=== PATIENT | female | born 1940 | race Caucasian/White ===

== ENCOUNTER 2017-12-10 12:25 | Inpatient (IN) | payer MEDICAID, MEDICARE ==
[~2017-12-10] VITALS: Ht 157.5 cm; Wt 68.0 kg
--- NOTE | 2017-12-10 12:25 | NUR ---
PT MARIBEL BLS TO ER BED 07
[2017-12-10 12:32] VITALS: BP 177/79
--- NOTE | 2017-12-10 13:24 | NUR ---
patient came in by [facility] for SOB and chest ain due to coughing. Patient and family refused [facility]. Patient has a historty of lung cancer. Patients family stated that she had a throat infection Xs 3 days. Patient has bilateral crackles and rhonchi. patient has a g tube. family does not use the g tube, they feed her by mouth.
[2017-12-10 13:27] LABS: MEAN CORPUSCULAR HEMOGLOBIN 30 pg (27-31); MEAN CORPUSCULAR HGB CONC 32 g/dL (33-37); MEAN CORPUSCULAR VOLUME 92.5 fL (80-94); PLATELET COUNT (AUTO) 199 K/uL (140-450); RED CELL DISTRIBUTION WIDTH 17.4 % (11.6-13.7); WHITE BLOOD COUNT (AUTO) 11.3 K/uL (4.8-10.8)
[2017-12-10 13:53] LABS: BASOPHILS % (MANUAL) 0 % (0-2); EOSINOPHILS % (MANUAL) 1 % (0-4); LYMPHOCYTES % (MANUAL) 5 % (20-46); MONOCYTES % (MANUAL) 9 % (5-12)
[2017-12-10 14:26] LABS: ANION GAP 11.7 (8-16); CARBON DIOXIDE 28.6 mmol/L (21-32); CHLORIDE 98 mmol/L (98-107); CREATININE 0.5 mg/dL (0.6-1.3); GLUCOSE 96 mg/dL (74-106); POTASSIUM 3.3 mmol/L (3.5-5.1); SODIUM SERUM 135 mmol/L (136-145); UREA NITROGEN, BLOOD 21 mg/dL (7-18)
[2017-12-10 14:32] LABS: ALBUMIN 3.1 g/dL (3.4-5.0); ASPARTATE AMINOTRANSFERASE 11 U/L (15-37); TOTAL BILIRUBIN 0.3 mg/dL (0.0-1.0)
[2017-12-10] MEDS ORDERED: VANCOMYCIN 1,000 MG in DEXTROSE 5% 250 ML IV ONE (14:45)
[2017-12-10] MEDS ORDERED: NACL 0.9% 1,000 ML IV ONE (14:45)
[2017-12-10] MEDS ORDERED: PIPERACILLIN/TAZOBACTAM 3.375 GM in DEXTROSE 5% 50 ML IV ONE (14:45)
[2017-12-10 14:51] LABS: APPEARANCE,URINE CLEAR (CLEAR); BILIRUBIN,URINE NEGATIVE (NEGATIVE); BLOOD, URINE TRACE-I (NEGATIVE); COLOR,URINE YELLOW (YELLOW); LEUKOCYTE ESTERASE ,URINE NEGATIVE (NEGATIVE); NITRITE, URINE POSITIVE (NEGATIVE); UGLUCOSE NEGATIVE (NEGATIVE)
--- NOTE | 2017-12-10 14:55 | NUR ---
PATEINT WENT TO CT
[2017-12-10 15:10] LABS: RBC,URINE 0-5 (RARE) /HPF (0-5); WBC,URINE 0-5 (RARE) /HPF (0-5)
[2017-12-10] MEDS ORDERED: NACL 0.9% 1,000 ML IV SCH (15:11)
[2017-12-10] MEDS ORDERED: HYDROcodone/APAP 7.5/325 MG 1 TAB PO PRN (15:15)
[2017-12-10] MEDS ORDERED: ONDANSETRON 4 MG ODT PO PRN (15:15)
[2017-12-10] MEDS ORDERED: ACETAMINOPHEN 325 MG TAB PO PRN (15:15)
[2017-12-10] MEDS ORDERED: PIPERACILLIN/TAZOBACTAM 3.375 GM VIAL IV ONE ×2 (15:32→21:49)
--- NOTE | 2017-12-10 15:57 | NUR ---
PT INCONTINENT OF URINE, FAMILY AT BEDSIDE. PT CLEANED, PERICARE GIVEN. PT TOLERATED WELL.
[2017-12-10 15:59] LABS: PROTHROMBIN TIME 9.6 secs (10.8-13.4)
--- NOTE | 2017-12-10 16:11 | NUR ---
Patient will be admitted to care of [facility]. Admited to TELE. Will go to room. Belongings list completed. Report to .
[2017-12-10 16:15] VITALS: BP 150/76
--- NOTE | 2017-12-10 16:15 | NUR ---
PATIENT WAS TRANSFERRED FROM ER. REPORT WAS GIVEN AT BEDSIDE. VS WAS TAKE. MRSA WAS SWABBED. SHELL MOLD BONDING MACHINE OPERATOR WAS PLACED. PATIENT IS AWAKE, ALERT. RESPIRATION EVEN, UNLABOR ON 2L NC. SKIN DRY AND WARM. LUNGS SOUND RHONCHI THROUGHOUT, BOWEL SOUND ACTIVE. REGULAR CARDIAC RHYTHM. GTUBE DRY AND INTACT. IV PATENT AND INTACT. ORIENT PATIENT AND FAMILY TO ROOM, STAFF, AND CALL LIGHT. PLAN OF CARE WAS DISCUSSED WITH PATIENT AND FAMILY. BED AT LOW POSITION, SIDE RAILS UP. CALL LIGHT WITHIN REACH.
[2017-12-10 16:18] LABS: CHOL/HDL RATIO 2.8 (1-4.5); FREE T4 (FREE THYROXINE) 1.11 ng/dL (0.76-1.46); MAGNESIUM 1.9 mg/dL (1.8-2.4); PHOSPHORUS 3.4 mg/dL (2.5-4.9); THYROID STIMULATING HORMONE 0.2 uIU/mL (0.34-3.74)
[2017-12-10] MEDS ORDERED: VANCOMYCIN 1,000 MG VIAL ONE (16:58)
[2017-12-10] MEDS ORDERED: ALBUTEROL SULFATE/IPRATROPIU 3 ML SOL IH PRN (17:15)
--- NOTE | 2017-12-10 17:43 | NUR ---
pts family member refused abg at this time pt needs to use toliet at this time
[2017-12-10] MEDS: DEXT 5% / NACL 0.45% 500 ML IV SCH (17:45)
[2017-12-10] MEDS ORDERED: AZIT250T4 PO (18:15)
[2017-12-10] MEDS ORDERED: PANT40EC PO (18:15)
[2017-12-10] MEDS ORDERED: LEVO5TAB12 PO (18:15)
[2017-12-10] MEDS ORDERED: OSIM40TA PO (18:15)
[2017-12-10] MEDS ORDERED: TEMA15CA24 PO (18:15)
[2017-12-10] MEDS ORDERED: KEP500 PO (18:15)
[2017-12-10] MEDS ORDERED: DEC4 PO (18:15)
[2017-12-10] MEDS ORDERED: AMLO5TAB PO (18:15)
[2017-12-10] MEDS ORDERED: LOV40I SUBQ (18:15)
--- NOTE | 2017-12-10 19:37 | NUR ---
ENDORSEMENT GIVE TO THE BOUFFANT CURTAIN MACHINE TENDER NURSE. PATIENT IS STABLE AT THIS TIME
--- NOTE | 2017-12-10 19:38 | NUR ---
RECEIVED PT FROM HATTIE BABCOCK PT IS AAOX2 COUGHING WITH ABUNDANT PRODUCTIVE SECRETION ON 2 LTS VIA NC IV ON RT HAND INFUSING WELL RELATIVES AT BED SIDE INITIAL ASSESSMENT DONE ON TELEMETRYST
--- NOTE | 2017-12-10 19:50 | NUR ---
INSTRUCTED PT ON I/S MANEUVER. ATTEMPTED TO COLLECT A SPUTUM SAMPLE. PT WAS NOT STRONG ENOUGH TO COUGH UP AN ADEQUATE AMOUNT FOR THE SPUTUM SAMPLE. COLLECTED AN ABG ON PT
[2017-12-10 20:00] VITALS: BP 143/84
[2017-12-10] MEDS ORDERED: POTASSIUM CHLORIDE 10 MEQ TABER PO SCH (20:00)
[2017-12-10] MEDS: ALBUTEROL SULFATE/IPRATROPIU 3 ML SOL IH SCH (21:24)
--- NOTE | 2017-12-10 21:31 | NUR ---
ASSESED PT. PT WAS SOB SO I GAVE PT DUONEB 3ML. Q6 TX WAS MISSED BC IT WAS NOT ON PT EMAR OR IN PYXIS.
[2017-12-10] MEDS: levETIRAcetam 500 MG TAB PO SCH (21:44)
[2017-12-10] MEDS: DOCUSATE SODIUM 100 MG GELCAP PO SCH (21:44)
[2017-12-10] MEDS: SCOPOLAMINE 1.5 MG/72 HR PATCH TD SCH (21:45)
[2017-12-10] MEDS: TEMAZEPAM 15 MG CAP PO SCH (21:45)
[2017-12-10] MEDS ORDERED: SCOPOLAMINE 1.5 MG/72 HR PATCH TD ONE (21:49)
[2017-12-10] MEDS: PIPER/TAZO 3.375GM/D5W PREMIX 50 ML IV SCH (21:53)
--- NOTE | 2017-12-10 22:00 | NUR ---
A NEW MEDIC ORDER IS GIVEN PT REPOSITIONED AND SUCTIONED NECESSARY
[2017-12-11] VITALS (7 sets, daily range): BP systolic 120–147; BP diastolic 60–90
--- NOTE | 2017-12-11 01:15 | NUR ---
PT IS TRANSFER TO ROOM 118
--- NOTE | 2017-12-11 03:00 | NUR ---
PT RESTING ON BED NOT SOB NOTED COOPERATIVE TO FOLLOW COMMANDS CAREGIVER AT BED SIDE
[2017-12-11] MEDS: DEXT 5% / NACL 0.45% 500 ML IV SCH ×2 (03:35→14:34)
[2017-12-11] MEDS: PIPER/TAZO 3.375GM/D5W PREMIX 50 ML IV SCH ×3 (05:27→20:32)
--- NOTE | 2017-12-11 05:42 | NUR ---
PT RESTING ON BED AND ALSO USING BSC VOIDING WELL ON TELEMETRY ON TELEMETRY ST PT HAS BEEN REPOSITIONED Q2HNOT SOB NOTED AT THIS TIME
--- NOTE | 2017-12-11 06:10 | NUR ---
SPONGE BATH GIVEN LINEN CHANGED SUCTIONED NECESSARY PT HAS BEEN REPOSITIONED Q2H ON TELEMETRY ST
[2017-12-11 06:24] LABS: EOSINOPHILS % (AUTO) 0.3 % (0.0-4.0); HEMATOCRIT 34.7 % (36-48); HEMOGLOBIN 11.1 g/dL (12.0-16.0); LYMPHOCYTES # (AUTO) 0.6 K/uL (2.5-16.5); LYMPHOCYTES % (AUTO) 7.9 % (20.5-51.1); MEAN CORPUSCULAR HEMOGLOBIN 30 pg (27-31); MEAN CORPUSCULAR HGB CONC 32 g/dL (33-37); MEAN CORPUSCULAR VOLUME 91.9 fL (80-94); MONOCYTES # (AUTO) 0.7 K/uL (0.8-1.0); MONOCYTES % (AUTO) 8.3 % (1.7-9.3); NEUTROPHILS # (AUTO) 6.6 K/uL (1.8-7.7); NEUTROPHILS % (AUTO) 83.5 % (42.2-75.2); PLATELET COUNT (AUTO) 169 K/uL (140-450); RED BLOOD CELL COUNT(AUTO) 3.77 MIL/uL (4.20-5.40); RED CELL DISTRIBUTION WIDTH 17.4 % (11.6-13.7); WHITE BLOOD COUNT (AUTO) 7.9 K/uL (4.8-10.8)
[2017-12-11 06:39] LABS: MAGNESIUM 1.9 mg/dL (1.8-2.4); PHOSPHORUS 3.6 mg/dL (2.5-4.9)
[2017-12-11 06:41] LABS: ANION GAP 10.6 (8-16); CARBON DIOXIDE 28.2 mmol/L (21-32); CHLORIDE 103 mmol/L (98-107); CREATININE 0.5 mg/dL (0.6-1.3); GLUCOSE 103 mg/dL (74-106); POTASSIUM 3.8 mmol/L (3.5-5.1); SODIUM SERUM 138 mmol/L (136-145); UREA NITROGEN, BLOOD 14 mg/dL (7-18)
[2017-12-11] MEDS: ALBUTEROL SULFATE/IPRATROPIU 3 ML SOL IH SCH ×3 (07:15→18:00)
--- NOTE | 2017-12-11 07:24 | NUR ---
PT UNABLE TO PRODUCE SPUTUM AT THIS TIME
--- NOTE | 2017-12-11 07:25 | NUR ---
RECEIVED REPORT FROM INSTRUMENTAL TEACHER NURSE WENDI AT BEDSIDE FOR CONTINUITY OF CARE. PT IS AAOX1. INTRODUCED SELF AND UPDATED BOARD. PT CAREGIVER AT BEDSIDE. IV TO R HAND INTACT WITH D5 1/2NS @50ML/HR. PT WITH COUGH BUT NO SPUTUM. NO SOB. O2 SAT 96% ON O2 NC 2L/MIN. SKIN INTACT. BSC NEXT TO BED. PT ON CLEAR LIQUID DIET. NO SIGNS OF DISTRESS. CALL LIGHT WITHIN REACH. BED IN LOW POSITION, WHEELS LOCKED. WILL CONTINUE TO MONITOR.
[2017-12-11] MEDS: DEXAMETHASONE 4 MG TAB PO SCH (09:05)
[2017-12-11] MEDS: LACTOBACILLUS RHAMNOSUS GG 1 EACH CAP PO SCH (09:05)
[2017-12-11] MEDS: PANTOPRAZOLE 40 MG TABEC PO SCH (09:05)
[2017-12-11] MEDS: levETIRAcetam 500 MG TAB PO SCH ×2 (09:05→20:32)
[2017-12-11] MEDS: DOCUSATE SODIUM 100 MG GELCAP PO SCH ×2 (09:06→20:32)
[2017-12-11] MEDS: amLODIPine 5 MG TAB PO SCH (09:06)
--- NOTE | 2017-12-11 09:06 | NUR ---
ADMINISTERED SCHEDULED MEDS. PT TOOK PO MEDS ONE AT AT TIME. REPORTED BY PT'S SON AND CAREGIVER PT HAD BM YESTERDAY AND DENIES CHEST PAIN. REPORTED THAT SHE HAS DISCOMFORT FROM COUGHING BUT NO PAIN MED REQUESTED. NO SIGNS OF DISTRESS. PT DID NO EAT BREAKFAST TRAY. FAMILY AND CAREGIVER AT BEDSIDE. WILL CONTINUE TO MONITOR.
--- NOTE | 2017-12-11 10:09 | NUR ---
CHECKED ON PT IN ROOM. PT GOT UP TO USE BSC ASSISTED BY CAREGIVER. REPORTED PT HAD A BM.
--- NOTE | 2017-12-11 11:00 | NUR ---
JENI MAR PT RECORDS FROM [facility] WERE FAXED AND PRINTED IN PT'S CHART.
--- NOTE | 2017-12-11 12:10 | NUR ---
PT WAS CRYING AND REPORTED PAIN FROM DISCOMFORT OF COUGH BY DAUGHTER. ADMINISTERED NORCO FOR PAIN. PT TOLERATED WELL. PT WAS TRYING TO TAKE OFF GOWN. CHANGED PT'S GOWN. SITTING UP IN CHAIR NOW AND CALM. PT'S SONS AND CAREGIVER AT BEDSIDE. WILL CONTINUE TO MONITOR .
--- NOTE | 2017-12-11 12:19 | NUR ---
Clinical review faxed to [employer] at [phone]
--- NOTE | 2017-12-11 14:20 | NUR ---
PT SLEEPING. NO SIGNS OF DISTRESS. PT'S SON REPORTED PT IN NO DISCOMFORT OF DOES NOT NEED ANYTHING RIGHT NOW. CALL LIGHT WITHIN REACH. WILL CONTINUE TO MONITOR.
--- NOTE | 2017-12-11 15:06 | NUR ---
MANAGER LEADERSHIP DEVELOPMENT NOTE Bedside swallow evaluation completed following clearance by YOKO Banda. Please refer to MANAGER LEADERSHIP DEVELOPMENT evaluation for full report. Recommend: -NPO except meds -Video swallow to r/o aspiration 2/2 asp. PNA, inconsistent s/sx of aspiration on all tested fluids, and overall poor PO intake endurance. -MANAGER LEADERSHIP DEVELOPMENT to follow 3x/wk x1wk for continued diagnostic assessment of swallow and education of safe swallow PVE w/YOKO Banda re: results and recommendations. G8996: CL G8997: Swallow NOMS 1 [id number]
--- NOTE | 2017-12-11 15:10 | NUR ---
12/11/17 RD INITIAL ASSESSMENT COMPLETED PLEASE REFER TO NUTRITION ASSESSMENT UNDER CARE ACTIVITY FOR ESTIMATED NUTRITIONAL NEEDS. 1. CONTINUE CLEAR LIQUIDS DIET TOLERATED 2. IF/WHEN MEDICALLY APPROPRIATE, CONSIDER ADVANCING PT TO REGULAR DIET, TOLERATED 3. RD TO FOLLOW-UP 2-3 DAYS, HIGH RISK NATALYA HORN RD
[2017-12-11] MEDS ORDERED: guaiFENesin DM 200/20 MG-10 ML 10 ML UDC PO PRN (16:45)
--- NOTE | 2017-12-11 16:45 | NUR ---
REPORTED TO DR. MATUTE PT ON TELE IS NOW 2ND DEGREE AVB, TYPE UNDETERMINED. ALSO REPORTED PT WITH CONGESTIVE COUGH BUT NON PRODUCTIVE. ORDERED GUAIFENESIN
--- NOTE | 2017-12-11 17:48 | NUR ---
ADMINISTERED GUAIFENESIN PO. EDUCATED PT AND PT'S SON OF MED AND SPUTUM COLLECTION NEEDED. VERBALIZED UNDERSTANDING. ENCOURAGED PT USE OF INCENTIVE SPIROMETER. NO SIGNS OF DISTRESS. WILL CONTINUE TO MONITOR.
--- NOTE | 2017-12-11 19:10 | NUR ---
ENDORSED PT TO MATERIAL HANDLER NURSE TRELL AT BEDSIDE FOR CONTINUITY OF CARE. PT IN STABLE CONDITION.
--- NOTE | 2017-12-11 19:20 | NUR ---
RECEIVED REPORT FROM DAY SHIFT RN, PATIENT IS SITTING IN THE CHAIR, AWAKE ALERT ORIENTED X3, NO S/S OF DISTRESS NOTED, REFUSED O2 AT THIS TIME, O2SAT 95% ON ROOM AIR. IV PATENT AND INTACT, INFUSING D5 1/2 NS AT 50ML/HR. G-TUBE IN PLACE, CLAMPED, PATIENT IS ON CLEAR LIQUID DIET. FAMILY MEMBER AT THE BEDSIDE, STATED," SHE CAN EAT AND DRINK." CALL LIGHT WITHIN REACH, SAFETY MEASURE ENSURED, WILL CONTINUE TO MONITOR.
--- NOTE | 2017-12-11 20:05 | NUR ---
ASSISTED PATIENT USED BEDSIDE COMMODE. PATIENT RESTING IN BED NOW, RESPIRATION EVEN AND UNLABORED . WILL CONTINUE TO MONITOR.
[2017-12-11] MEDS: TEMAZEPAM 15 MG CAP PO SCH (20:32)
--- NOTE | 2017-12-11 20:42 | NUR ---
DUE MEDICATION GIVEN, PATIENT TOLERATED WELL. NO S/S OF DISTRESS NOTED, RESPIRATION EVEN AND UNLABORED, ON ROOM AIR. SAFETY MEASURE ENSURED, WILL CONTINUE TO MONITOR.
--- NOTE | 2017-12-11 23:25 | NUR ---
VITAL SIGNS STABLE, NO S/S OF DISTRESS NOTED, RESPIRATION EVEN AND UNLABORED, CALL LIGHT WITHIN REACH, SAFETY MEASURE ENSURED, WILL CONTINUE TO MONITOR.
[2017-12-12] MEDS: DEXT 5% / NACL 0.45% 500 ML IV SCH ×3 (00:07→20:34)
--- NOTE | 2017-12-12 00:12 | NUR ---
ASSISTED PATIENT USED BEDSIDE COMMODE. PATIENT RESTING IN BED, NO S/S OF DISTRESS NOTED, RESPIRATION EVEN AND UNLABORED, STILL REFUSED O2SAT. O2SAT 96%, ON ROOM AIR. CALL LIGHT WITHIN REACH, SAFETY MEASURE ENSURED, WILL CONTINUE TO MONITOR.
--- NOTE | 2017-12-12 02:49 | NUR ---
PATIENT IS SLEEPING, NO S/S OF DISTRESS NOTED, RESPIRATION EVEN AND UNLABORED, CALL LIGHT WITHIN REACH, SAFETY MEASURE ENSURED, WILL CONTINUE TO MONITOR.
[2017-12-12 04:00] VITALS: BP 120/73
[2017-12-12] MEDS: PIPER/TAZO 3.375GM/D5W PREMIX 50 ML IV SCH ×3 (04:11→20:34)
--- NOTE | 2017-12-12 04:24 | NUR ---
VITAL SIGNS STABLE, NO S/S OF DISTRESS NOTED, RESPIRATION EVEN AND UNLABORED, CALL LIGHT WITHIN REACH, SAFETY MEASURE ENSURED, WILL CONTINUE TO MONITOR.
[2017-12-12 06:39] LABS: BASOPHILS % (AUTO) 0.1 % (0.0-2.0); EOSINOPHILS % (AUTO) 0.4 % (0.0-4.0); HEMATOCRIT 31.4 % (36-48); HEMOGLOBIN 10.3 g/dL (12.0-16.0); LYMPHOCYTES # (AUTO) 0.6 K/uL (2.5-16.5); LYMPHOCYTES % (AUTO) 5.9 % (20.5-51.1); MEAN CORPUSCULAR HEMOGLOBIN 30 pg (27-31); MEAN CORPUSCULAR HGB CONC 33 g/dL (33-37); MEAN CORPUSCULAR VOLUME 91.8 fL (80-94); MONOCYTES # (AUTO) 0.8 K/uL (0.8-1.0); MONOCYTES % (AUTO) 7.9 % (1.7-9.3); NEUTROPHILS # (AUTO) 8.7 K/uL (1.8-7.7); NEUTROPHILS % (AUTO) 85.7 % (42.2-75.2); PLATELET COUNT (AUTO) 146 K/uL (140-450); RED BLOOD CELL COUNT(AUTO) 3.42 MIL/uL (4.20-5.40); RED CELL DISTRIBUTION WIDTH 17.5 % (11.6-13.7); WHITE BLOOD COUNT (AUTO) 10.1 K/uL (4.8-10.8)
[2017-12-12 07:05] LABS: ANION GAP 9.7 (8-16); CARBON DIOXIDE 31.1 mmol/L (21-32); CHLORIDE 104 mmol/L (98-107); CREATININE 0.5 mg/dL (0.6-1.3); GLUCOSE 100 mg/dL (74-106); POTASSIUM 3.8 mmol/L (3.5-5.1); SODIUM SERUM 141 mmol/L (136-145); UREA NITROGEN, BLOOD 14 mg/dL (7-18)
[2017-12-12 07:16] LABS: MAGNESIUM 1.9 mg/dL (1.8-2.4); PHOSPHORUS 3.4 mg/dL (2.5-4.9)
--- NOTE | 2017-12-12 07:34 | NUR ---
ENDORSED PLAN OF CARE TO DAY SHIFT RN, PATIENT IS IN STABLE CONDITION.
--- NOTE | 2017-12-12 07:35 | NUR ---
RECEIVED REPORT FROM PM NURSE AT BEDSIDE. PT FAMILY AT BEDSIDE. LUXEMBOURGISH SPEAKING ONLY. INTRODUCED SELF AND UPDATED BOARD. IV INFUSING WELL. PT SLEEPING AT THIS TIME. SAFETY MEASURE IN PLACE. WILL CONTINUE TO MONITOR PT.
[2017-12-12] MEDS: ALBUTEROL SULFATE/IPRATROPIU 3 ML SOL IH SCH ×3 (07:36→18:47)
--- NOTE | 2017-12-12 07:46 | NUR ---
RECEIVED PATIENT ON 2L NC, O2 97%. FAMILY AT BEDSIDE. SCHEDULED BREATHING TREATMENT ADMINISTERED. PATIENT TOLERATED TX WELL, NO ADVERSE SIDE EFFECTS. INSTRUCTED PATIENT ON COUGH TECHNIQUE. NO RESPIRATORY DISTRESS NOTED AT THIS TIME. WILL CONTINUE TO MONITOR.
[2017-12-12 08:00] VITALS: BP 129/81
--- NOTE | 2017-12-12 08:36 | NUR ---
PATIENT HAS BEEN SCREENED AND CATEGORIZED HIGH NUTRITION RISK. PATIENT WILL BE SEEN WITHIN 1-2 DAYS OF ADMISSION. 12/11/17 12/12/[address]
[2017-12-12] MEDS: PANTOPRAZOLE 40 MG TABEC PO SCH (09:10)
[2017-12-12] MEDS: LACTOBACILLUS RHAMNOSUS GG 1 EACH CAP PO SCH (09:10)
[2017-12-12] MEDS: DOCUSATE SODIUM 100 MG GELCAP PO SCH ×2 (09:10→20:35)
[2017-12-12] MEDS: levETIRAcetam 500 MG TAB PO SCH ×2 (09:10→20:35)
[2017-12-12] MEDS: amLODIPine 5 MG TAB PO SCH (09:11)
[2017-12-12] MEDS: DEXAMETHASONE 4 MG TAB PO SCH (09:12)
--- NOTE | 2017-12-12 09:30 | NUR ---
ADMINISTERED MEDS TO PT. PT TOLERATED WELL. PT FAMILY AT BEDSIDE. PT SATURATING AT 95% ON O2 @3LPM. ALL SAFETY MEASURE IN PLACE. WILL CONTINUE TO MONITOR PT.
--- NOTE | 2017-12-12 10:48 | NUR ---
CALLED TO BEDSIDE BY RN TO ASSESS PATIENT. PATIENT PRESENTS WITH NON-PRODUCTIVE COUGH AND EXP WHEEZING. PRN BREATHING TX ADMINISTERED. PATIENT TOLERATED WELL, NO ADVERSE SIDE EFFECTS. WILL CONTINUE TO MONITOR.
--- NOTE | 2017-12-12 11:28 | NUR ---
GOT CALL SPEECH THERAPIST. WILL BE HER WITH PT FOR SPEECH EVAL AT 1430.
[2017-12-12 12:00] VITALS: BP 126/62
--- NOTE | 2017-12-12 12:03 | NUR ---
Clinical review faxed to [employer] at [phone]
--- NOTE | 2017-12-12 12:57 | NUR ---
FAMILY AT BEDSIDE. SCHEDULED BREATHING TREATMENT ADMINISTERED. PT TOLERATED TX WELL, NO ADVERSE SIDE EFFECTS.
--- NOTE | 2017-12-12 13:00 | NUR ---
DAUGHTER AT BEDSIDE. PATIENT PRESENTS WITH WEAK COUGH ND AUDIBLE SECRETIONS. NASOTRACHEALLY SUCTIONED MODERATE AMOUNT OF THICK PALE YELLOW SECRETIONS THROUGH LEFT NARE. VITAL SIGNS REMAINED WITHIN NORMAL LIMITS. WILL CONTINUE TO MONITOR.
--- NOTE | 2017-12-12 13:00 | NUR ---
CHECKED ON PT. COUGHING CONTINUOUSLY. RAISED THE BED OF THE HEAD. FAMILY AT BEDSIDE. INVOLVED ON PT CARE. PT STABLE AT THIS TIME. WILL CONTINUE TO MONITOR PT.
--- NOTE | 2017-12-12 15:37 | NUR ---
BITUMEN PLANT OPERATOR NOTE Bedside swallow evaluation completed, please refer to BITUMEN PLANT OPERATOR evaluation for full report. Recommend: -Mech soft texture + thin liquids for all PO intake, 1:1 feeding assistance for safety and tray set up. -Food from home OK. -Small bites/sips, slow rate, alternate bites/sips, no straw. -BITUMEN PLANT OPERATOR to continue to follow as per POC PVE w/RN Sital and family re: results and recommendations. BITUMEN PLANT OPERATOR discussed w/family re: current swallow function, and pt is now cleared for PO intake of mech soft/thin liquids as well as educated on safe swallow precautions to reduce risk of aspiration. BITUMEN PLANT OPERATOR relayed information through translation device family possessed, pt family voiced understanding. [id number] (therapy and MBSS)
--- NOTE | 2017-12-12 15:50 | NUR ---
CHECKED ON PT. FAMILY MEMBER AT BED SIDE . ASSISTING PT TO TRANSFER TO BEDSIDE COMMODE. PT STABLE AT THIS TIME.
[2017-12-12 16:00] VITALS: BP 126/62
--- NOTE | 2017-12-12 18:48 | NUR ---
RT IN BREATHING TREATMENT IN ROOM. SON AT BEDSIDE. PT SLEEPING AT THIS TIME. NO SIGN OF DISTRESS, WILL CONTINUE TO MONITOR PT.
--- NOTE | 2017-12-12 19:25 | NUR ---
ENDORSED PT TO PM NURSE FOR CONTINUITY OF CARE. STABLE AT THIS TIME.
--- NOTE | 2017-12-12 19:35 | NUR ---
RECEIVED REPORT FROM DAY SHIFT RN, PATIENT RESTING IN THE BED, AWAKE ALERT ORIENTED X2, RESPIRATION EVEN AND UNLABORED, ON O2 NC 3L, NO S/S OF DISTRESS NOTED. IV PATENT AND INTACT, INFUSING D5 1/2 NS AT 50ML/HR. G-TUBE IN PLACE, CLAMPED, PATIENT IS ON CLEAR LIQUID DIET. FAMILY MEMBER AT THE BEDSIDE, CALL LIGHT WITHIN REACH, SAFETY MEASURE ENSURED, WILL CONTINUE TO MONITOR.
[2017-12-12 20:00] VITALS: BP 123/59
[2017-12-12] MEDS: TEMAZEPAM 15 MG CAP PO SCH (20:35)
--- NOTE | 2017-12-12 20:45 | NUR ---
DUE MEDICATION GIVEN, PATIENT TOLERATED WELL. NO S/S OF DISTRESS NOTED, RESPIRATION EVEN AND UNLABORED, CALL LIGHT WITHIN REACH, SAFETY MEASURE ENSURED, WILL CONTINUE TO MONITOR.
--- NOTE | 2017-12-12 22:38 | NUR ---
PATIENT IS SLEEPING, NO S/S OF DISTRESS NOTED, FAMILY MEMBER AT THE BEDSIDE, RESPIRATION EVEN AND UNLABORED, CALL LIGHT WITHIN REACH, SAFETY MEASURE ENSURED, WILL CONTINUE TO MONITOR.
[2017-12-13] VITALS: BP 109/56
--- NOTE | 2017-12-13 00:07 | NUR ---
VITAL SIGNS STABLE. NO S/S OF DISTRESS NOTED, RESPIRATION EVEN AND UNLABORED, ON ROOM AIR. CALL LIGHT WITHIN REACH, SAFETY MEASURE ENSURED, WILL CONTINUE TO MONITOR.
--- NOTE | 2017-12-13 02:08 | NUR ---
PATIENT IS SLEEPING, NO S/S OF DISTRESS NOTED, RESPIRATION EVEN AND UNLABORED, ON ROOM AIR. CALL LIGHT WITHIN REACH, SAFETY MEASURE ENSURED, WILL CONTINUE TO MONITOR.
[2017-12-13 04:00] VITALS: BP 140/88
[2017-12-13] MEDS: PIPER/TAZO 3.375GM/D5W PREMIX 50 ML IV SCH ×3 (04:37→21:23)
--- NOTE | 2017-12-13 04:37 | NUR ---
DUE MEDICATION STARTED, VITAL SIGNS STABLE. NO S/S OF DISTRESS NOTED, RESPIRATION EVEN AND UNLABORED, ON ROOM AIR. CALL LIGHT WITHIN REACH, SAFETY MEASURE ENSURED, WILL CONTINUE TO MONITOR.
[2017-12-13] MEDS: DEXT 5% / NACL 0.45% 500 ML IV SCH ×2 (05:05→10:01)
[2017-12-13] MEDS: ALBUTEROL SULFATE/IPRATROPIU 3 ML SOL IH SCH ×4 (06:00→20:04)
[2017-12-13 06:54] LABS: HEMATOCRIT 31.5 % (36-48); HEMOGLOBIN 10.2 g/dL (12.0-16.0); MEAN CORPUSCULAR HEMOGLOBIN 30 pg (27-31); MEAN CORPUSCULAR HGB CONC 33 g/dL (33-37); MEAN CORPUSCULAR VOLUME 92.1 fL (80-94); PLATELET COUNT (AUTO) 136 K/uL (140-450); RED BLOOD CELL COUNT(AUTO) 3.42 MIL/uL (4.20-5.40)
--- NOTE | 2017-12-13 07:09 | NUR ---
PT REFUSED HHN TX. PER PT'S PODIATRIC MEDICINE PROFESSOR SHE DOES NOT WANT TX NOW. YOKO CAI AT BEDSIDE. NO SOB OR DISTRESS NOTED. PT ON ROOM AIR SPO2 94%.
--- NOTE | 2017-12-13 07:15 | NUR ---
ENDORSED PLAN OF CARE TO DAY SHIFT RN, PATIENT RESTING IN BED, IN STABLE CONDITION.
--- NOTE | 2017-12-13 07:16 | NUR ---
RECEIVED REPORT FROM LINING MAKER NURSE AT BEDSIDE FOR CONTINUITY OF CARE, PATIENT RESTING IN THE BED, AWAKE ALERT ORIENTED X2, FAMILY AT BEDSIDE. RESPIRATION EVEN AND UNLABORED, ON ROOM AIR, NO S/S OF DISTRESS NOTED. IV PATENT AND INTACT, INFUSING D5 1/2 NS AT 50ML/HR. G-TUBE IN PLACE, CLAMPED, PATIENT IS ON CLEAR LIQUID DIET. UPDATED BOARD. SAFETY PRECAUTION IN PLACE, BED IN LOWEST SETTING, CALL LIGHT WITHIN REACH, WILL CONTINUE TO MONITOR.
[2017-12-13 07:20] LABS: PHOSPHORUS 3.7 mg/dL (2.5-4.9)
[2017-12-13 07:26] LABS: ANION GAP 11.8 (8-16); CARBON DIOXIDE 29.1 mmol/L (21-32); CHLORIDE 104 mmol/L (98-107); CREATININE 0.6 mg/dL (0.6-1.3); GLUCOSE 93 mg/dL (74-106); POTASSIUM 3.9 mmol/L (3.5-5.1); SODIUM SERUM 141 mmol/L (136-145); UREA NITROGEN, BLOOD 15 mg/dL (7-18)
[2017-12-13 07:39] LABS: LYMPHOCYTES % (MANUAL) 8 % (20-46); MONOCYTES % (MANUAL) 8 % (5-12)
[2017-12-13 07:53] VITALS: BP 123/62
--- NOTE | 2017-12-13 08:06 | NUR ---
DOCTORS MAKING THEIR ROUNDS. WILL WAIT FOR NEW ORDERS.
[2017-12-13] MEDS: levETIRAcetam 500 MG TAB PO SCH ×2 (08:37→21:23)
[2017-12-13] MEDS: LACTOBACILLUS RHAMNOSUS GG 1 EACH CAP PO SCH (08:37)
[2017-12-13] MEDS: DOCUSATE SODIUM 100 MG GELCAP PO SCH ×2 (08:37→21:17)
[2017-12-13] MEDS: PANTOPRAZOLE 40 MG TABEC PO SCH (08:37)
[2017-12-13] MEDS: DEXAMETHASONE 4 MG TAB PO SCH (08:37)
[2017-12-13] MEDS: amLODIPine 5 MG TAB PO SCH (08:37)
--- NOTE | 2017-12-13 08:37 | NUR ---
ORDERED MEDICATIONS GIVEN. PATIENT TOLERATED THEM WELL. FAMILY MEMBERS AT BEDSIDE. NO SIGNS OF DISTRESS OR SOB NOTED ON ROOM AIR. RESPIRATIONS EVEN AND UNLABORED. PATIENT DENIES PAIN AT THE MOMENT. SAFETY PRECAUTION IN PLACE, BED IN LOWEST SETTING, CALL LIGHT WITHIN REACH, WILL CONTINUE TO MONITOR.
[2017-12-13 12:00] VITALS: BP 129/70
--- NOTE | 2017-12-13 12:00 | NUR ---
RT IN WITH PATIENT GIVING BREATHING TREATMENT. FAMILY MEMBER AT BEDSIDE. ORDERED IVPB ADMINISTERED. PATIENT TOLERATED IT WELL. VS WNL. INFORMED FAMILY MEMBER TO SIT PATIENT UP WHEN FEEDING HER AND TO KEEP HOB AT 30 DEGREE PER MD PLAN OF CARE. FAMILY MEMBER VERBALIZED UNDERSTANDING. PATIENT GETTING AGITATED, KEEPS SAYING "GET OUT" "GET OUT" IN MANDARIN. ALL NEEDS MET. RN AGREED TO PATIENT'S REQUEST. NO SIGNS OF DISTRESS OR SOB NOTED ON ROOM AIR. RESPIRATIONS EVEN AND UNLABORED. PATIENT DENIES PAIN AT THE MOMENT. SAFETY PRECAUTION IN PLACE, BED IN LOWEST SETTING, CALL LIGHT WITHIN REACH, WILL CONTINUE TO MONITOR.
--- NOTE | 2017-12-13 13:32 | NUR ---
PATIENT ASLEEP, FAMILY AT BEDSIDE. NO SIGNS OF DISTRESS OR SOB NOTED ON ROOM AIR. RESPIRATIONS EVEN AND UNLABORED. SAFETY PRECAUTION IN PLACE, BED IN LOWEST SETTING, CALL LIGHT WITHIN REACH, WILL CONTINUE TO MONITOR.
--- NOTE | 2017-12-13 13:38 | NUR ---
Clinical review faxed to [facility] at [phone]
--- NOTE | 2017-12-13 14:59 | NUR ---
PATIENT SLEEPING, FAMILY AT BEDSIDE. NO SIGNS OF DISTRESS OR SOB NOTED ON ROOM AIR. RESPIRATIONS EVEN AND UNLABORED. SAFETY PRECAUTION IN PLACE, BED IN LOWEST SETTING, CALL LIGHT WITHIN REACH, WILL CONTINUE TO MONITOR.
[2017-12-13 16:00] VITALS: BP 128/67
--- NOTE | 2017-12-13 16:10 | NUR ---
WORK TICKET DISTRIBUTOR NOTE S/O: Pt seen at bedside, sleeping, but roused easily w/family present. Pt cooperative w/all tasks. WORK TICKET DISTRIBUTOR re-educated family on safe swallow precautions and safe positioning during PO intake. Pt voiced understanding and demonstrated accordingly. Per RN, pt did not eat breakfast since she was still on clear liquid diet. Family fed pt small, soft sandwiches + thin liquids while upright, pt consumed w/no overt s/sx of aspiration. A/P: WFL swallow, no s/sx of aspiration observed. Recommend continue WORK TICKET DISTRIBUTOR POC [id number]
[2017-12-13] MEDS: SCOPOLAMINE 1.5 MG/72 HR PATCH TD SCH (16:40)
--- NOTE | 2017-12-13 16:40 | NUR ---
ORDERED MEDICATION ADMINISTERED, PATIENT TOLERATED IT WELL. VITAL SIGNS WNL. FAMILY MEMBERS AT BEDSIDE. NO SIGNS OF DISTRESS OR SOB NOTED AT THIS TIME. PATIENT DENIES PAIN. SAFETY PRECAUTION IN PLACE, CALL LIGHT WITHIN REACH. WILL CONTINUE TO MONITOR PATIENT.
--- NOTE | 2017-12-13 17:55 | NUR ---
PATIENT'S SON REQUESTED THAT THE DRESSING OF PATIENT'S G TUBE BE CHANGED. DRESSING REMOVED, SURROUNDINGS RINSED WITH NS AND PAT DRY, NEW DRESSING APPLIED WITH TAPE. PATIENT TOLERATED IT. PATIENT NOW RESTING IN BED, NO SIGNS OF DISTRESS OR SOB NOTED AT THIS TIME. PATIENT DENIES PAIN. SAFETY PRECAUTION IN PLACE, CALL LIGHT WITHIN REACH. WILL CONTINUE TO MONITOR PATIENT.
--- NOTE | 2017-12-13 19:21 | NUR ---
PATIENT REPORT GIVEN TO AIRBORNE OPERATIONS MANAGER NURSE AT BEDSIDE FOR CONTINUITY OF CARE. PATIENT IN STABLE CONDITION. SON AT BEDSIDE.
--- NOTE | 2017-12-13 19:22 | NUR ---
RECEIVED REPORT AT PT BEDSIDE FROM DAY SHIFT RN, FOR CONTINUITY OF CARE. PATIENT IS A/OX2, ON ROOM AIR. ABLE TO MAKE NEEDS KNOWN, ABLE TO FOLLOW COMMANDS. PT HAS G-TUBE, CLAMPED. PT USES BEDSIDE COMMODE WITH ASSIST. PT SKIN IS INTACT. RESPIRATIONS EVEN AND UNLABORED. UPDATED BOARD. VITAL SIGNS WITHIN NORMAL LIMITS. PT STABLE, NO SIGNS OF DISTRESS NOTED AT THIS TIME. BED IN LOWEST POSITION, BED ALARM ON. CALL LIGHT WITHIN REACH, WILL CONTINUE TO MONITOR.
[2017-12-13 20:00] VITALS: BP 128/63
[2017-12-13] MEDS: TEMAZEPAM 15 MG CAP PO SCH (21:23)
--- NOTE | 2017-12-13 21:25 | NUR ---
ADMINISTERED SCHEDULED MEDICATIONS, PT TOLERATED WELL. PT STABLE, NO SIGNS OF DISTRESS NOTED AT THIS TIME. BED IN LOWEST POSITION, BED ALARM ON. CALL LIGHT WITHIN REACH, WILL CONTINUE TO MONITOR.
--- NOTE | 2017-12-13 22:30 | NUR ---
STARTED NEW 22G IV TO RIGHT AC.
[2017-12-14] VITALS: BP 113/61
--- NOTE | 2017-12-14 | NUR ---
VITAL SIGNS WITHIN NORMAL LIMITS EXCEPT DIASTOLIC BP. PT STABLE, NO SIGNS OF DISTRESS NOTED AT THIS TIME. BED IN LOWEST POSITION, BED ALARM ON. CALL LIGHT WITHIN REACH, WILL CONTINUE TO MONITOR.
[2017-12-14] MEDS: DEXT 5% / NACL 0.45% 500 ML IV SCH (01:47)
[2017-12-14 04:00] VITALS: BP 117/89
[2017-12-14] MEDS: PIPER/TAZO 3.375GM/D5W PREMIX 50 ML IV SCH ×2 (04:55→12:35)
[2017-12-14 06:01] LABS: BASOPHILS # (AUTO) 0.1 K/uL (0.00-0.22); BASOPHILS % (AUTO) 1.8 % (0.0-2.0); EOSINOPHILS % (AUTO) 0.6 % (0.0-4.0); HEMATOCRIT 31.8 % (36-48); HEMOGLOBIN 10.6 g/dL (12.0-16.0); LYMPHOCYTES # (AUTO) 0.7 K/uL (2.5-16.5); LYMPHOCYTES % (AUTO) 8.2 % (20.5-51.1); MEAN CORPUSCULAR HEMOGLOBIN 30 pg (27-31); MEAN CORPUSCULAR HGB CONC 33 g/dL (33-37); MEAN CORPUSCULAR VOLUME 90.3 fL (80-94); MONOCYTES # (AUTO) 0.6 K/uL (0.8-1.0); MONOCYTES % (AUTO) 7.4 % (1.7-9.3); NEUTROPHILS # (AUTO) 6.6 K/uL (1.8-7.7); PLATELET COUNT (AUTO) 139 K/uL (140-450); RED BLOOD CELL COUNT(AUTO) 3.52 MIL/uL (4.20-5.40); RED CELL DISTRIBUTION WIDTH 17.7 % (11.6-13.7); WHITE BLOOD COUNT (AUTO) 8.1 K/uL (4.8-10.8)
[2017-12-14 06:10] LABS: ANION GAP 8.3 (8-16); CARBON DIOXIDE 31.1 mmol/L (21-32); CHLORIDE 104 mmol/L (98-107); CREATININE 0.7 mg/dL (0.6-1.3); GLUCOSE 88 mg/dL (74-106); POTASSIUM 3.4 mmol/L (3.5-5.1); SODIUM SERUM 140 mmol/L (136-145); UREA NITROGEN, BLOOD 15 mg/dL (7-18)
[2017-12-14] MEDS: ALBUTEROL SULFATE/IPRATROPIU 3 ML SOL IH SCH ×2 (06:47→13:17)
--- NOTE | 2017-12-14 06:59 | NUR ---
RECEIVED PATIENT ON ROOM AIR, O2 SAT 94%. FAMILY AT BEDSIDE. SCHEDULED BREATHING TREATMENT ADMINISTERED. PATIENT TOLERATED TX WELL, NO ADVERSE SIDE EFFECTS. NO RESPIRATORY DISTRESS NOTED AT THIS TIME. WILL CONTINUE TO MONITOR.
--- NOTE | 2017-12-14 07:31 | NUR ---
ENDORSED PT TO DAY SHIFT RN FOR CONTINUITY OF CARE. PT IN STABLE CONDITION.
--- NOTE | 2017-12-14 07:32 | NUR ---
RECEIVED REPORT FROM TELECOM ANALYST NURSE, PT IS SLEEPING IN BED BUT EASILY AWAKEN, PT IS AAOX2, PT SPEAKS MANDARIN, CAREGIVER IS AT BESIDE, AMBULATES WITH ASSIST, USES BEDSIDE COMMODE WITH ASSISTANCE, PT HAS IV ON HER RIGHT AC, PATENT, INTACT, FLUSHING WELL, NO S/S OF RESPIRATORY DISTRESS OR DISCOMFORT NOTED, SAFETY/FALL PRECAUTIONS ARE IN PLACE, CALL LIGHT IS WITHIN REACH, WILL CONTINUE TO MONITOR.
[2017-12-14 08:00] VITALS: BP 135/67
[2017-12-14] MEDS: levETIRAcetam 500 MG TAB PO SCH (08:10)
[2017-12-14] MEDS: amLODIPine 5 MG TAB PO SCH (08:11)
[2017-12-14] MEDS: PANTOPRAZOLE 40 MG TABEC PO SCH (08:11)
[2017-12-14] MEDS: LACTOBACILLUS RHAMNOSUS GG 1 EACH CAP PO SCH (08:11)
[2017-12-14] MEDS: DOCUSATE SODIUM 100 MG GELCAP PO SCH (08:11)
[2017-12-14] MEDS: DEXAMETHASONE 4 MG TAB PO SCH (08:11)
--- NOTE | 2017-12-14 08:11 | NUR ---
DUE MEDICATIONS GIVEN, PT TOLERATED WELL, CAREGIVER IS AT BEDSIDE, CALL LIGHT IS WITHIN REACH.
--- NOTE | 2017-12-14 09:10 | NUR ---
[facility]ROS [facility] SHE SAID THIS PATIENT IS HERS AND TO FAX REVIEW TO [phone]. I FAXED CONCURRENT REVIEW AND H&P TO HER . PHONE PETROS [phone]
--- NOTE | 2017-12-14 10:15 | NUR ---
PT IS SLEEPING IN BED AT THIS TIME, CAREGIVER IS AT BEDSIDE. CALL LIGHT WITHIN REACH.
[2017-12-14] MEDS ORDERED: DEXT 5% / NACL 0.45% 1,000 ML IV SCH (10:36)
[2017-12-14 12:00] VITALS: BP 108/67
[2017-12-14] MEDS ORDERED: BENZONATATE 100 MG CAPLF PO SCH (13:00)
--- NOTE | 2017-12-14 13:10 | NUR ---
PT IS RESTING IN BED, NO S/S OF RESPIRATORY DISTRESS OR DISCOMFORT NOTED, FAMILY IS AT BEDSIDE, CALL LIGHT IS WITHIN REACH.
--- NOTE | 2017-12-14 13:27 | NUR ---
PATIENT ON ROOM AIR, O2 SAT 96%. FAMILY AT BEDSIDE. SCHEDULED BREATHING TREATMENT ADMINISTERED. PATIENT TOLERATED TX WELL, NO ADVERSE SIDE EFFECTS. NO ACUTE RESPIRATORY DISTRESS NOTED. WILL CONTINUE TO MONITOR.
[2017-12-14] MEDS ORDERED: LACT10CA PO (15:12)
[2017-12-14] MEDS ORDERED: LEVO750T2 PO (15:12)
--- NOTE | 2017-12-14 15:12 | NUR ---
PT RESTING IN BED, FAMILY IS AT BEDSIDE.
--- NOTE | 2017-12-14 15:15 | NUR ---
Service Crew Supervisor Notes: (Late Entry) I Called [facility] at I spoke to Kelsy from admissions. I informed her of Patient's Discharge home today and need for Home health services to resume. Per Kelsy a nurse will be send to Patient's home tomorrow. I faxed her Patient's Clinical information and MD order for Home Health.
[2017-12-14] MEDS ORDERED: DEXT5SYR3 PO (15:58)
--- NOTE | 2017-12-14 17:00 | NUR ---
DISCHARGE INSTRUCTIONS GIVEN, ID WRIST BAND REMOVED, IV REMOVED, CATHETER TIP INTACT. PT STABLE UPON DISCHARGE ACCOMPANIED BY FAMILY.
--- NOTE | 2017-12-14 17:10 | NUR ---
FINANCIAL ADVOCATE NOTE 1630 FINANCIAL ADVOCATE educated family present at bedside re: safe swallow strategies for home setting, family voiced understanding. Per RN, pt d/c today to home w/HH. FINANCIAL ADVOCATE to d/c from skilled ST services, no f/u recommended at this time. G8996: CL G8997: CJ G8998: CI Swallow NOMS 4
== END 2017-12-14 17:00 | disposition home health service (06) | DRG 133 ==
LOC: MED 12:25 → MTU 15:17
PROVIDERS: ADMIT Family Medicine; ATTEND Family Medicine
DX: J96.01 Acute respiratory failure with hypoxia (principal); J69.0 Pneumonitis due to inhalation of food and vomit; I26.99 Other pulmonary embolism without acute cor pulmonale; G93.41 Metabolic encephalopathy; E44.0 Moderate protein-calorie malnutrition; I82.409 Acute embolism and thrombosis of unspecified deep veins of unspecified lower extremity; C78.2 Secondary malignant neoplasm of pleura; R13.10 Dysphagia, unspecified; J90 Pleural effusion, not elsewhere classified; C79.31 Secondary malignant neoplasm of brain; E86.0 Dehydration; C34.90 Malignant neoplasm of unspecified part of unspecified bronchus or lung; J98.19 Other pulmonary collapse; G30.9 Alzheimer's disease, unspecified; N39.0 Urinary tract infection, site not specified; E87.6 Hypokalemia; E66.9 Obesity, unspecified; C34.92 Malignant neoplasm of unspecified part of left bronchus or lung; J20.9 Acute bronchitis, unspecified; Z96.659 Presence of unspecified artificial knee joint; K44.9 Diaphragmatic hernia without obstruction or gangrene; E87.1 Hypo-osmolality and hyponatremia; E05.90 Thyrotoxicosis, unspecified without thyrotoxic crisis or storm; F02.80 Dementia in other diseases classified elsewhere, unspecified severity, without behavioral disturbance, psychotic disturbance, mood disturbance, and anxiety; Z68.27 Body mass index [BMI] 27.0-27.9, adult; Z92.21 Personal history of antineoplastic chemotherapy; Z79.899 Other long term (current) drug therapy; R65.10 Systemic inflammatory response syndrome (SIRS) of non-infectious origin without acute organ dysfunction
CPT/HCPCS: 36415; 36600; 70370; 71045; 71250; 76604; 80048; 80053; 81001; 82150; 82803; 83036; 83605; 83690; 83735; 83880; 84100; 84439; 84443; 84484; 85025; 85610; 85730; 87040; 87070; 87081; 87086; 87205; 92526; 92610; 92611; 93005; 94640; 96361; 96365; 97799; 99285; J1644; J2543; J3370; J7030; J7060; J7620; Q0092

== ENCOUNTER 2017-12-19 10:35 | Outpatient (CLI) | payer MEDICARE, MEDICAID ==
[~2017-12-19 10:35] MED LIST: AMLO5TAB PO; DEC4 PO; DEXT5SYR3 PO; KEP500 PO; LACT10CA PO; LEVO5TAB12 PO; LEVO750T2 PO; LOV40I SUBQ; OSIM40TA PO; PANT40EC PO; TEMA15CA24 PO
== END 2017-12-19 20:36 | disposition home or self-care (01) ==
LOC: MRD 10:35
DX: C34.32 Malignant neoplasm of lower lobe, left bronchus or lung (principal); J90 Pleural effusion, not elsewhere classified; K44.9 Diaphragmatic hernia without obstruction or gangrene
CPT/HCPCS: 71046

== ENCOUNTER 2018-09-10 19:02 | Inpatient (IN) | payer OTHER, MEDICAID ==
[~2018-09-10] VITALS: Ht 157.5 cm; Wt 78.5 kg
[~2018-09-10 19:02] MED LIST changes: +AMOX-999 PO; -DEC4 PO; -DEXT5SYR3 PO; +DOCU-299 PO; +FERR325E14 PO; +HYDR-1093 PO; -KEP500 PO; -LEVO750T2 PO; -LOV40I SUBQ; -PANT40EC PO; +QUET50TA PO; +RIVA20TA PO; -TEMA15CA24 PO; +TRAM50TA1 PO; +[UNRECOGNIZED DRUG - OTHER]
[2018-09-10 19:03] VITALS: BP 163/81
[2018-09-10] MEDS ORDERED: NACL 0.9% 500 ML IV SCH (19:16)
[2018-09-10] MEDS ORDERED: ALBUTEROL SULFATE/IPRATROPIU 3 ML SOL IH ONE ×2 (19:20→20:00)
--- NOTE | 2018-09-10 19:20 | NUR ---
BIB FAMILY. PT C/O SOB AND DYSPNEA X1 HR. BILAT INSPIRATORY/EXPIRATORY WHEEZING. BASES CLEAR BILAT. 02SAT 97% AT RA. TACHY AT 106. HOB ELEVATED 90 DECGREES FOR COMFORT AND DECREASE WORK OF BREATHING. ALERT/NON-GEORGIAN SPEAKIG. ER MD AWARE. CONTINUE TO MONITOR.
--- NOTE | 2018-09-10 19:20 | NUR ---
PT IN GOWN, IN BED; BED IN LOWER LOCKED POSITION. ER MD MADE AWARE OF PT STATUS. WILL CONTINUE TO MONITOR.
[2018-09-10] MEDS ORDERED: MAG SULF 2000 MG/WATER PREMIX 50 ML IV ONE (20:00)
[2018-09-10] MEDS ORDERED: methylPREDNISolone SS 125 MG/2 ML VIAL IVP ONE (20:00)
[2018-09-10 20:06] LABS: BASOPHILS % (AUTO) 0.2 % (0.0-2.0); EOSINOPHILS # (AUTO) 0.1 K/uL (0-0.4); EOSINOPHILS % (AUTO) 2.5 % (0.0-4.0); HEMATOCRIT 33.9 % (36-48); HEMOGLOBIN 10.5 g/dL (12.0-16.0); LYMPHOCYTES # (AUTO) 1.5 K/uL (2.5-16.5); LYMPHOCYTES % (AUTO) 34.9 % (20.5-51.1); MEAN CORPUSCULAR HEMOGLOBIN 35 pg (27-31); MEAN CORPUSCULAR HGB CONC 31 g/dL (33-37); MEAN CORPUSCULAR VOLUME 111.8 fL (80-94); MONOCYTES # (AUTO) 0.4 K/uL (0.8-1.0); MONOCYTES % (AUTO) 9.7 % (1.7-9.3); NEUTROPHILS # (AUTO) 2.2 K/uL (1.8-7.7); NEUTROPHILS % (AUTO) 52.7 % (42.2-75.2); PLATELET COUNT (AUTO) 163 K/uL (140-450); RED BLOOD CELL COUNT(AUTO) 3.03 MIL/uL (4.20-5.40); RED CELL DISTRIBUTION WIDTH 16.3 % (11.6-13.7); WHITE BLOOD COUNT (AUTO) 4.2 K/uL (4.8-10.8)
[2018-09-10 20:16] LABS: ANION GAP 14.8 (8-16); CHLORIDE 108 mmol/L (98-107); CREATININE 0.8 mg/dL (0.6-1.3); GLUCOSE 124 mg/dL (74-106); POTASSIUM 3.8 mmol/L (3.5-5.1); SODIUM SERUM 143 mmol/L (136-145); UREA NITROGEN, BLOOD 9 mg/dL (7-18)
[2018-09-10 20:17] LABS: PROTHROMBIN TIME 10.9 secs (10.8-13.4)
[2018-09-10 20:25] LABS: ALBUMIN 3.8 g/dL (3.4-5.0); ASPARTATE AMINOTRANSFERASE 18 U/L (15-37); TOTAL BILIRUBIN 0.2 mg/dL (0.0-1.0)
[2018-09-10 20:34] LABS: APPEARANCE,URINE CLEAR (CLEAR); BILIRUBIN,URINE NEGATIVE (NEGATIVE); BLOOD, URINE 1+ (NEGATIVE); LEUKOCYTE ESTERASE ,URINE NEGATIVE (NEGATIVE); NITRITE, URINE NEGATIVE (NEGATIVE); PH,URINE 5.5 (5.0-9.0); UGLUCOSE NEGATIVE (NEGATIVE)
[2018-09-10 20:38] LABS: COLOR,URINE STRAW (YELLOW)
--- NOTE | 2018-09-10 20:47 | NUR ---
LACTIC ACID 2.4 REPORTED TO JAIDA BABCOCK AND DR. KHALIL.
[2018-09-10 20:55] LABS: RBC,URINE 0-5 /HPF (0-5); WBC,URINE 0-5 /HPF (0-5)
[2018-09-10] MEDS ORDERED: NACL 0.9% 1,700 ML IV ONE (21:10)
[2018-09-10] MEDS ORDERED: ACETAMINOPHEN 325 MG TAB PO PRN (21:15)
[2018-09-10] MEDS ORDERED: ONDANSETRON 4 MG/2 ML VIAL IM/IVP PRN (21:15)
[2018-09-10] MEDS ORDERED: MORPHINE SULFATE 2 MG/ML SYR IVP PRN (21:15)
[2018-09-10] MEDS ORDERED: HYDROcodone/APAP 7.5/325 MG 1 TAB PO PRN (21:15)
[2018-09-10 21:42] LABS: CHOL/HDL RATIO 2.9 (1-4.5); MAGNESIUM 1.9 mg/dL (1.8-2.4); PHOSPHORUS 3.6 mg/dL (2.5-4.9); THYROID STIMULATING HORMONE 1.19 uIU/mL (0.34-3.74)
--- NOTE | 2018-09-10 21:50 | NUR ---
REPORT GIVEN AND CARE TRANSFERED TO VIANNEY BABCOCK ROOM 107A. TRANSFERED VIA GURNEY WITH VSS.
[2018-09-10 22:00] VITALS: BP 135/68
--- NOTE | 2018-09-10 22:00 | NUR ---
RECEIVED BEDSIDE REPORT FROM NET WPF DEVELOPER JAIDA. PT IS AWAKE AND ALERT. ON NC 2L O2. PT SPEAKS FAROESE MANDARIN SON AND CAREGIVER ARE AT BEDSIDE. PT WITH AUDIBLE WHEEZING. RT JUST GAVE LAST BREATHING TREATMENT AT 1900. C/C SOB AND WHEEZING DX COPD EXACERBATION. VITAL SIGNS ARE STABLE: 135/68 HR 100 97% ON 2L, RR 22, DENIES PAIN, 99.0. SKIN IS INTACT. PT WAS BROUGHT IN VIA GURNEY AND TRANSFERRED TO BED. PER SON PT USES WALKER AT HOME. IV ON L HAND 24G. PLAN OF CARE WAS DISCUSSED. WILL CONTINUE TO MONITOR.
[2018-09-10] MEDS: NACL 0.9% 1,000 ML IV SCH (22:35)
[2018-09-11] VITALS: BP 116/51
--- NOTE | 2018-09-11 00:15 | NUR ---
VITAL SIGNS ARE STABLE. PT RESTING COMFORTABLY IN BED. RESPIRATIONS ARE EQUAL AND UNLABORED. PLAN MANAGER IS AT BEDSIDE. INFORMED CAREGIVER WE NEED TO COLLECT A STOOL SPECIMEN.
--- NOTE | 2018-09-11 01:36 | NUR ---
SPUTUM UPTAINED AND SENT TO LAB
--- NOTE | 2018-09-11 03:02 | NUR ---
PT SLEEPING. NO S/S OF DISTRESS. CAREGIVER AT BEDSIDE. CALL LIGHT WITHIN REACH.
[2018-09-11 04:12] VITALS: BP 132/70
--- NOTE | 2018-09-11 04:30 | NUR ---
VITAL SIGNS ARE STABLE. PT ACCIDENTLY PULLED IV OUT. IV CATH INTACT. NEW IV ON R WRIST 24 G. PT TOLERATED WELL. SAFETY MEASURES ARE IN PLACE.
[2018-09-11] MEDS: methylPREDNISolone SS 125 MG/2 ML VIAL IVP SCH ×3 (04:37→21:33)
[2018-09-11] MEDS: AZITHROMYCIN 500 MG in DEXTROSE 5% 250 ML IV SCH (05:32)
[2018-09-11] MEDS ORDERED: AZITHROMYCIN 500 MG INJ VIAL IV ONE (05:33)
[2018-09-11] MEDS: ALBUTEROL SULFATE/IPRATROPIU 3 ML SOL IH SCH ×3 (06:38→19:58)
[2018-09-11] MEDS: NACL 0.9% 1,000 ML IV SCH ×2 (07:14→17:14)
[2018-09-11 07:15] LABS: HEMATOCRIT 28.9 % (36-48); HEMOGLOBIN 9.8 g/dL (12.0-16.0); MEAN CORPUSCULAR HEMOGLOBIN 36 pg (27-31); MEAN CORPUSCULAR HGB CONC 34 g/dL (33-37); MEAN CORPUSCULAR VOLUME 105.1 fL (80-94); PLATELET COUNT (AUTO) 173 K/uL (140-450); RED BLOOD CELL COUNT(AUTO) 2.75 MIL/uL (4.20-5.40); RED CELL DISTRIBUTION WIDTH 14.9 % (11.6-13.7)
--- NOTE | 2018-09-11 07:30 | NUR ---
GAVE BEDSIDE REPORT. PT ENDORSED IN STABLE CONDITION.
--- NOTE | 2018-09-11 07:31 | NUR ---
REPORT RECIVED FROM MOLECULAR PATHOLOGIST, PT SLEEPING QUIETLY, AROUSES EASILY BY VOICE, RESP EVEN UNLABORED ON RA, SKIN WARM DRY COLOR WNL, POC REVIEWED, PT DENIES ANY IMMEDIATE NEEDS, ALL SAFETY MEASURES IN PLACE, INTERVIEWING CLERK AT BEDSIDE, WILL CONTINUE TO MONITOR.
[2018-09-11 07:58] LABS: ANION GAP 17.9 (8-16); CARBON DIOXIDE 19.4 mmol/L (21-32); CHLORIDE 106 mmol/L (98-107); CREATININE 0.9 mg/dL (0.6-1.3); GLUCOSE 208 mg/dL (74-106); POTASSIUM 3.3 mmol/L (3.5-5.1); SODIUM SERUM 140 mmol/L (136-145); UREA NITROGEN, BLOOD 7 mg/dL (7-18)
[2018-09-11 08:00] VITALS: BP_SYST 120; BP_SYST 131; BP_DIAS 66; BP_DIAS 71
--- NOTE | 2018-09-11 08:02 | NUR ---
PATIENT HAS BEEN SCREENED AND CATEGORIZED HIGH NUTRITION RISK. PATIENT WILL BE SEEN WITHIN 1-2 DAYS OF ADMISSION. 09/11/18-09/12/[address]
--- NOTE | 2018-09-11 08:22 | NUR ---
DR COVINGTON AT BEDSIDE
[2018-09-11 08:30] LABS: MAGNESIUM 2.3 mg/dL (1.8-2.4); PHOSPHORUS 2.5 mg/dL (2.5-4.9)
[2018-09-11 08:37] LABS: WHITE BLOOD COUNT (AUTO) 1.6 K/uL (4.8-10.8)
[2018-09-11 08:38] LABS: EOSINOPHILS % (MANUAL) 5 % (0-4); LYMPHOCYTES % (MANUAL) 20 % (20-46); MONOCYTES % (MANUAL) 3 % (5-12)
[2018-09-11] MEDS: LACTOBACILLUS RHAMNOSUS GG 1 EACH CAP PO SCH (09:53)
[2018-09-11] MEDS ORDERED: LEVO5TAB12 PO (10:08)
[2018-09-11] MEDS ORDERED: DOCUSATE SODIUM 100 MG GELCAP PO SCH (10:10)
[2018-09-11] MEDS ORDERED: XAR10 PO (10:13)
[2018-09-11] MEDS ORDERED: AMLO2.5T PO (10:13)
[2018-09-11] MEDS ORDERED: DOCU-299 PO (10:13)
[2018-09-11] MEDS: DOCUSATE SODIUM 100 MG GELCAP PO PRN (10:13)
--- NOTE | 2018-09-11 10:13 | NUR ---
DAUGHTER AT BEDSIDE, SHE BROUGHT CURRENT MEDICATION LIST, COPY GIVEN TO DR COVINGTON.
[2018-09-11] MEDS ORDERED: QUET50TA PO (10:14)
[2018-09-11] MEDS ORDERED: OSIM40TA PO ×2 (10:14→10:36)
[2018-09-11] MEDS ORDERED: ATA25 PO (10:14)
[2018-09-11] MEDS ORDERED: POTASSIUM CHLORIDE 10 MEQ TABER PO SCH (10:30)
[2018-09-11] MEDS ORDERED: amLODIPine 5 MG TAB PO SCH (10:45)
[2018-09-11] MEDS ORDERED: LORATADINE 10 MG TAB PO SCH (11:00)
[2018-09-11] MEDS: TAGRISSO PO SCH (11:34)
[2018-09-11 12:00] VITALS: BP 122/68
[2018-09-11] MEDS: guaiFENesin DM 200/20 MG-10 ML 10 ML UDC PO SCH ×2 (12:00→19:06)
[2018-09-11] MEDS ORDERED: guaiFENesin DM 200/20 MG-10 ML 10 ML UDC PO SCH (12:00)
--- NOTE | 2018-09-11 13:31 | NUR ---
RIGHT WRIST IV LEAKING, NEW IV STARTED TO LEFT FA, 22G, PT CYNDEE WELL, IVF CONTINUES.
--- NOTE | 2018-09-11 14:58 | NUR ---
PT ASSISTED WTIH DIAPER CHANGE, PERICARE DONE, PT CYNDEE WELL, PT APPEARS IN NAD, WILL CONTINUE TO MOTNITOR
--- NOTE | 2018-09-11 15:45 | NUR ---
09/11/18 RD INITIAL ASSESSMENT COMPLETED PLEASE REFER TO NUTRITION ASSESSMENT UNDER CARE ACTIVITY FOR ESTIMATED NUTRITIONAL NEEDS. 1. RECOMMEND SWALLOW EVALUATION 2. RECOMMEND REGULAR DIET WITH TEXTURE AND LIQUID CONSISTENCY RECOMMEND BY SWALLOW EVALUATION 3. PULMONARY NUTRITION EDUCATION WAS PROVIDED 4. RD TO FOLLOW-UP 3-5 DAYS, MODERATE RISK NATALYA HORN RD
[2018-09-11 16:00] VITALS: BP 128/79
--- NOTE | 2018-09-11 19:20 | NUR ---
REPORT GIVEN TO QUARTZ MINER NURSE, PT IN STABLE CONDITION.
--- NOTE | 2018-09-11 19:21 | NUR ---
RECEIVED BEDSIDE REPORT FROM ALBERTO BABCOCK. PT IS AWAKE AND ALERT. PT SPEAKS MAORI MANDARIN CAREGIVER AT BEDSIDE. DX COPD EXACERBATION. PT ON ROOM AIR. NO S/S OF DISTRESS. SKIN IS INTACT. IV ON L FA 22G IVF INFUSING PER ORDERS. PLAN OF CARE WAS DISCUSSED WITH PT AND CAREGIVER. SAFETY MEASURES ARE IN PLACE. WILL CONTINUE TO MONITOR.
[2018-09-11 20:00] VITALS: BP 141/76
[2018-09-11] MEDS ORDERED: guaiFENesin 600 MG TABER PO SCH (21:00)
[2018-09-11] MEDS: hydrOXYzine HCL 25 MG TAB PO SCH (21:34)
--- NOTE | 2018-09-11 21:34 | NUR ---
VITAL SIGNS ARE STABLE. DUE MEDICATIONS GIVEN PT TOLERATED WELL. NO S/S OF DISTRESS. BED ALARM ON. WILL CONTINUE TO MONITOR.
[2018-09-11] MEDS: QUEtiapine FUMARATE 25 MG TAB PO SCH (21:35)
--- NOTE | 2018-09-11 22:20 | NUR ---
PT IV PULLED OUT. IV CATH INTACT. NEW IV ON LEFT HAND 24G. INFUSING WELL. PT TOLERATED WELL. WILL CONTINUE TO MONITOR.
--- NOTE | 2018-09-12 | NUR ---
VITAL SIGNS ARE STABLE. NO S/S OF DISTRESS. DUE MEDICATIONS ADMINISTERED. WILL CONTINUE TO MONITOR.
[2018-09-12] MEDS: guaiFENesin DM 200/20 MG-10 ML 10 ML UDC PO SCH ×5 (00:01→23:15)
[2018-09-12] MEDS: NACL 0.9% 1,000 ML IV SCH ×2 (00:01→13:14)
[2018-09-12 01:00] VITALS: BP 129/69
[2018-09-12] MEDS: ALBUTEROL SULFATE/IPRATROPIU 3 ML SOL IH PRN ×2 (01:35→08:36)
--- NOTE | 2018-09-12 01:49 | NUR ---
PT WITH AUDIBLE WHEEZING. RT IS AT BEDSIDE. NO SIGNS OF DISTRESS.
--- NOTE | 2018-09-12 02:00 | NUR ---
PT IS SLEEPING COMFORTABLY IN BED. NO S/S OF DISTRESS. BED ALARM ON AND CAREGIVER IS AT BEDSIDE.
[2018-09-12 04:00] VITALS: BP 156/81
--- NOTE | 2018-09-12 05:40 | NUR ---
PT REMOVED GOWN, IV AND NC. PT WITH HIGH B/P 156/81 AND HEART RATE 125 DR ALBA AWARE AND SAW PT. WILL ADMINISTER NORCO FOR PAIN AND MONITOR PATIENT. BED ALARM ON
--- NOTE | 2018-09-12 06:00 | NUR ---
NEW IV BEGAN ON R FA 22G. PT TOLERATED WELL. NO S/S OF DISTRESS. WILL CONTINUE TO MONITOR
[2018-09-12] MEDS: methylPREDNISolone SS 40 MG/ML VIAL IVP SCH ×3 (06:03→21:10)
[2018-09-12] MEDS: AZITHROMYCIN 500 MG in DEXTROSE 5% 250 ML IV SCH (06:03)
[2018-09-12 06:41] LABS: BASOPHILS % (AUTO) 0.1 % (0.0-2.0); HEMATOCRIT 31.5 % (36-48); HEMOGLOBIN 10.5 g/dL (12.0-16.0); LYMPHOCYTES # (AUTO) 0.3 K/uL (2.5-16.5); LYMPHOCYTES % (AUTO) 4.8 % (20.5-51.1); MEAN CORPUSCULAR HEMOGLOBIN 35 pg (27-31); MEAN CORPUSCULAR HGB CONC 34 g/dL (33-37); MEAN CORPUSCULAR VOLUME 105.1 fL (80-94); MONOCYTES # (AUTO) 0.2 K/uL (0.8-1.0); MONOCYTES % (AUTO) 2.9 % (1.7-9.3); NEUTROPHILS % (AUTO) 92.2 % (42.2-75.2); PLATELET COUNT (AUTO) 194 K/uL (140-450); RED CELL DISTRIBUTION WIDTH 15.3 % (11.6-13.7); WHITE BLOOD COUNT (AUTO) 6.5 K/uL (4.8-10.8)
[2018-09-12 06:45] LABS: ANION GAP 16.5 (8-16); CHLORIDE 110 mmol/L (98-107); CREATININE 0.8 mg/dL (0.6-1.3); GLUCOSE 152 mg/dL (74-106); POTASSIUM 3.5 mmol/L (3.5-5.1); SODIUM SERUM 145 mmol/L (136-145); UREA NITROGEN, BLOOD 10 mg/dL (7-18)
--- NOTE | 2018-09-12 07:22 | NUR ---
GAVE BEDSIDE REPORT TO DAY SHIFT RN. PT ENDORSED IN STABLE CONDITION.
[2018-09-12] MEDS: ALBUTEROL SULFATE/IPRATROPIU 3 ML SOL IH SCH ×3 (07:33→18:51)
[2018-09-12 08:00] VITALS: BP 111/78
[2018-09-12 08:24] LABS: FOLIC ACID 6.6 ng/mL (>3.0)
[2018-09-12] MEDS ORDERED: OSIMERTINIB MESYLATE 40 MG PO SCH (09:00)
[2018-09-12] MEDS ORDERED: LEVOCETIRIZINE DIHYDROCHLORIDE PO SCH (09:00)
[2018-09-12] MEDS ORDERED: amLODIPine 5 MG TAB PO SCH (09:00)
[2018-09-12] MEDS ORDERED: RIVAROXABAN 10 MG TAB PO SCH (09:00)
--- NOTE | 2018-09-12 09:20 | NUR ---
SPOKE WITH STUDENT SUPPORT ADVISOR AT BEDSIDE REGARDING CTA CHEST, STUDENT SUPPORT ADVISOR UNABLE TO CONSENT FOR PT, HE WILL CONTACT FAMILY MEMBER
[2018-09-12] MEDS: amLODIPine 5 MG TAB PO SCH (09:23)
[2018-09-12] MEDS: LACTOBACILLUS RHAMNOSUS GG 1 EACH CAP PO SCH (09:24)
[2018-09-12] MEDS: TAGRISSO PO SCH (09:24)
[2018-09-12] MEDS: LORATADINE 10 MG TAB PO SCH (09:24)
[2018-09-12] MEDS: RIVAROXABAN 10 MG TAB PO SCH (09:26)
--- NOTE | 2018-09-12 09:35 | NUR ---
AM MEDS GIVEN, PT CYNDEE PILLS WELL.
--- NOTE | 2018-09-12 10:18 | NUR ---
PAD CHANGED, REPOSITIONED FOR COMFORT, RESP EVEN UNLABORED, O2 SAT 96% RA, PT APPEARS ANXIOUS AND IRRITATED, KEEPS TAKING OFF TELE MONITOR, FAMILY REQUESTS TO GIVE SOMETHING TO HELP HER RELAX, WILL NOTIFY MD.
--- NOTE | 2018-09-12 11:30 | NUR ---
PHONE CONSENT OBTAINED FROM DAUGHTER LUZ ELENA FOR CTA CHEST. 20G IV STARTED TO LEFT AC. PT CYNDEE WELL.
[2018-09-12 12:00] VITALS: BP 122/76
--- NOTE | 2018-09-12 12:33 | NUR ---
PT TAKEN TO CT FOR CTA.
[2018-09-12] MEDS: DOCUSATE SODIUM 100 MG GELCAP PO PRN (13:59)
--- NOTE | 2018-09-12 14:15 | NUR ---
VOIDED IN PAD, PADS CHANGED, SLIGHT REDNESS NOTED AT BILAT GROIN, CLEANED WITH SOAP AND WATER, MADE AWARE OF FINDINGS.
[2018-09-12] MEDS ORDERED: NACL 0.9% 250 ML IV ONE (15:25)
[2018-09-12 16:00] VITALS: BP 128/68
[2018-09-12] MEDS ORDERED: BISACODYL 10 MG SUPP RC SCH (16:00)
[2018-09-12] MEDS ORDERED: LORazepam 0.5 MG TAB PO PRN (16:20)
[2018-09-12] MEDS ORDERED: LORazepam 0.5 MG TAB PO SCH (16:35)
--- NOTE | 2018-09-12 16:45 | NUR ---
PT SITTING UP IN CHAIR, PT APPEARS MORE COMFORTABLE, SMILING, RESP EVEN UNLABORED, OCCASIONAL COUGHS NOTED, PT'S DAUGHTER REFUSES ATIVAN NOW, WILL MEDICATE IF NEEDED. Addendum: 09/12/18 at 1814 by Amada Thompson RN NS BOLUS 250ML STARTED FOR INCREASED HR, IV SITE WNL, WILL CONTINUE TO MONTIOR.
--- NOTE | 2018-09-12 17:22 | NUR ---
PT URINATED IN BEDSIDE COMMODE, PINK TINGED URINE NOTED, DR COVINGTON AWARE, WILL CONTINUE TO MONITOR
--- NOTE | 2018-09-12 18:05 | NUR ---
PER DAUGHTER NO BM FOR 3 DAYS, SUPPOSITORY GIVEN PER ORDER, PT CYNDEE WELL.
--- NOTE | 2018-09-12 19:20 | NUR ---
DAUGHTER REPORTS PT DID NOT HAVE ANY BM AFTER SUPPOSITORY.
--- NOTE | 2018-09-12 19:30 | NUR ---
REPORT GIVEN TO SET OFF PRESS OPERATOR NURSE, PT IN STABLE CONDITION.
--- NOTE | 2018-09-12 19:31 | NUR ---
RECEIVED BEDSIDE REPORT FROM DAY SHIFT NURSE ALBERTO RN, PT STABLE, NO DISTRESS NOTE, IV TO R FA 22G PATENT, INTACT, INFUSING NS @ 100ML/HR, AND IV TO L AC 20G, PATENT, INTACT, SL, PT ON ROOM AIR, NO SOB NOTED, PT SITTING AT BEDSIDE CHAIR ACCOMPANIED BY FAMILY, INITIAL ASSESSMENT DONE, ALL SAFETY PRECAUTION MET, CALL LIGHT WITHIN REACH, WILL CONTINUE TO MONITOR.
[2018-09-12 20:00] VITALS: BP 146/80
[2018-09-12] MEDS: hydrOXYzine HCL 25 MG TAB PO SCH (21:07)
[2018-09-12] MEDS: QUEtiapine FUMARATE 25 MG TAB PO SCH (21:07)
[2018-09-12] MEDS: NYSTATIN CRE 100 MU/GM 15 GM TUBE TP SCH (21:08)
--- NOTE | 2018-09-12 21:10 | NUR ---
DUE MEDICATION ADMINISTERED, PT TOLERATED WELL, NO DISTRESS NOTED, CALL LIGHT WITHIN REACH, WILL CONTINUE TO MONITOR.
--- NOTE | 2018-09-12 23:15 | NUR ---
DUE MEDICATION ADMINISTERED, CHECKED ON PT V/S, WITHIN PT BASELINE, PT SLEEPING, NO DISTRESS NOTED, CALL LIGHT WITHIN REACH, WILL CONTINUE TO MONITOR.
[2018-09-13] VITALS: BP 132/77
[2018-09-13] MEDS: NACL 0.9% 1,000 ML IV SCH ×2 (02:28→09:14)
--- NOTE | 2018-09-13 03:57 | NUR ---
PT SLEEPING, V/S TAKEN, WITHIN PT BASELINE, CALL LIGHT WITHIN REACH, WILL CONTINUE TO MONITOR.
[2018-09-13 04:00] VITALS: BP 135/84
[2018-09-13] MEDS: AZITHROMYCIN 500 MG in DEXTROSE 5% 250 ML IV SCH (05:04)
[2018-09-13] MEDS: guaiFENesin DM 200/20 MG-10 ML 10 ML UDC PO SCH ×3 (05:04→18:00)
--- NOTE | 2018-09-13 05:04 | NUR ---
DUE MEDICATION ADMINISTERED, PT REFUSED PO MEDICATION, WOULD NOT OPEN HER MOUTH AND WOULD NOT LET NURSE TOUCH HER. PT RESTING, NO DISTRESS NOTED, CALL LIGHT WITHIN REACH, WILL CONTINUE TO MONITOR.
[2018-09-13 07:19] LABS: HEMATOCRIT 29.1 % (36-48); HEMOGLOBIN 9.7 g/dL (12.0-16.0); LYMPHOCYTES # (AUTO) 0.3 K/uL (2.5-16.5); LYMPHOCYTES % (AUTO) 4.6 % (20.5-51.1); MEAN CORPUSCULAR HEMOGLOBIN 35 pg (27-31); MEAN CORPUSCULAR HGB CONC 34 g/dL (33-37); MEAN CORPUSCULAR VOLUME 105.2 fL (80-94); MONOCYTES # (AUTO) 0.3 K/uL (0.8-1.0); MONOCYTES % (AUTO) 4.7 % (1.7-9.3); NEUTROPHILS # (AUTO) 6.3 K/uL (1.8-7.7); NEUTROPHILS % (AUTO) 90.7 % (42.2-75.2); PLATELET COUNT (AUTO) 177 K/uL (140-450); RED BLOOD CELL COUNT(AUTO) 2.77 MIL/uL (4.20-5.40)
--- NOTE | 2018-09-13 07:20 | NUR ---
ENDORSED PT TO DAY SHIFT NURSE ALEXSANDRA RN, PT STABLE, NO DISTRESS NOTED, CALL LIGHT WITHIN REACH.
--- NOTE | 2018-09-13 07:21 | NUR ---
Received report from pm nurse Olga. Pt asleep in bed, respirations even & nonlabored, FLACC 0. Call light within reach.
[2018-09-13 07:45] LABS: ANION GAP 15.6 (8-16); CARBON DIOXIDE 22.2 mmol/L (21-32); CHLORIDE 110 mmol/L (98-107); CREATININE 0.8 mg/dL (0.6-1.3); GLUCOSE 178 mg/dL (74-106); POTASSIUM 3.8 mmol/L (3.5-5.1); SODIUM SERUM 144 mmol/L (136-145); UREA NITROGEN, BLOOD 15 mg/dL (7-18)
[2018-09-13] MEDS: ALBUTEROL SULFATE/IPRATROPIU 3 ML SOL IH SCH ×3 (07:52→19:07)
--- NOTE | 2018-09-13 07:53 | NUR ---
SON IN ROOM PATIENT WHEN AWAKE OCCASIONALLY IS COMBATIVE
[2018-09-13 08:00] VITALS: BP 148/78
[2018-09-13] MEDS ORDERED: DOCUSATE SODIUM 100 MG GELCAP PO SCH (09:00)
[2018-09-13] MEDS: LORATADINE 10 MG TAB PO SCH (09:12)
[2018-09-13] MEDS: LACTOBACILLUS RHAMNOSUS GG 1 EACH CAP PO SCH (09:12)
[2018-09-13] MEDS: amLODIPine 5 MG TAB PO SCH (09:13)
[2018-09-13] MEDS: RIVAROXABAN 10 MG TAB PO SCH (09:14)
[2018-09-13] MEDS: NYSTATIN CRE 100 MU/GM 15 GM TUBE TP SCH ×2 (09:15→20:35)
[2018-09-13] MEDS: Z-GUARD PASTE TP SCH (09:15)
[2018-09-13] MEDS: TAGRISSO PO SCH (09:22)
[2018-09-13] MEDS ORDERED: AMOX-999 PO (12:00)
--- NOTE | 2018-09-13 12:00 | NUR ---
FAMILY AT BEDSIDE, DAUGHTER RAMÍREZ, REQUESTED "NO P.T. FOR TODAY LETS LET HER JUST SLEEP SHE HAS NOT SLEPT IN 2 DAYS" NO CONSENT FOR CARE GIVEN DESPITE EXPLANATION OF BENEFITS OF REHAB. NURSE MADE AWARE.
[2018-09-13] MEDS ORDERED: LACT10CA1 PO (12:01)
[2018-09-13 12:39] VITALS: BP 134/75
--- NOTE | 2018-09-13 12:47 | NUR ---
PATIENT SLEEPING IN BED, SON AND DAUGHTER AT BEDSIDE. NO SIGNS OF DISTRESS, SATING 95% ON RA Addendum: 09/13/18 at 1746 by Kaitlin Moe RN CLARIFICATION OF INFORMATION: NEPHEW AND SISTER AT BEDSIDE, NOT SON AND DAUGHTER.
[2018-09-13] MEDS ORDERED: METH4TAB1 PO (15:07)
[2018-09-13] MEDS ORDERED: methylPREDNISolone SS 40 MG/ML VIAL IVP SCH (15:30)
[2018-09-13 16:00] VITALS: BP 144/81
[2018-09-13] MEDS ORDERED: SODIUM PHOSPHATE 118 ML ENEM RC SCH (16:00)
[2018-09-13] MEDS ORDERED: METOPROLOL SUCCINATE 50 MG TABER PO SCH (17:00)
--- NOTE | 2018-09-13 19:18 | NUR ---
RECEIVED PATIENT ON ROOM AIR, PULSE OX SAT 95%. FAMILY AT BEDSIDE. SCHEDULED BREATHING TREATMENT ADMINISTERED. TOLERATED TX WELL, NO ADVERSE SIDE EFFECTS. NO RESPIRATORY DISTRESS NOTED. WILL CONTINUE TO MONITOR.
--- NOTE | 2018-09-13 19:25 | NUR ---
Report given to pm nurse Olga.
--- NOTE | 2018-09-13 19:26 | NUR ---
RECEIVED BEDSIDE REPORT FROM DAY SHIFT NURSE ALEXSANDRA RN, PT STABLE, NO DISTRESS NOTED, IV TO R FA 20G PATENT, INTACT, AND IV TO L AC 20G PATENT, INTACT, PT ON ROOM AIR, NO SOB, FAMILY AT BEDSIDE, INITIAL ASSESSMENT DONE, ALL SAFETY PRECAUTION MET, CALL LIGHT WITHIN REACH, WILL CONTINUE TO MONITOR.
[2018-09-13 20:00] VITALS: BP 156/89
--- NOTE | 2018-09-13 20:35 | NUR ---
DUE MEDICATION ADMINISTERED, PT TOLERATED WELL, NO DISTRESS NOTED, CALL LIGHT WITHIN REACH, WILL CONTINUE TO MONITOR.
[2018-09-13] MEDS ORDERED: hydrOXYzine HCL 25 MG TAB PO SCH (21:00)
--- NOTE | 2018-09-13 23:41 | NUR ---
CHECKED ON PT, PT SLEEPING, EASY TO AROUSE, NO DISTRESS NOTED, V/S TAKEN, WITHIN PT BASELINE, CALL LIGHT WITHIN REACH, WILL CONTINUE TO MONITOR.
[2018-09-14] VITALS: BP 144/79
--- NOTE | 2018-09-14 03:55 | NUR ---
CHECKED ON PT, PT RESTING, NO DISTRESS NOTED, CALL LIGHT WITHIN REACH, WILL CONTINUE TO MONITOR.
[2018-09-14 04:00] VITALS: BP 152/76
[2018-09-14] MEDS: AZITHROMYCIN 500 MG in DEXTROSE 5% 250 ML IV SCH (04:19)
--- NOTE | 2018-09-14 05:12 | NUR ---
PT PULLED OUT IV, CATH INTACT, NEW IV INSERTED 24G TO THE R WRIST, PT TOLERATED WELL, NO DISTRESS NOTED, CALL LIGHT WITHIN REACH, WILL CONTINUE TO MONITOR.
[2018-09-14 06:34] LABS: ANION GAP 13.2 (8-16); CARBON DIOXIDE 26.6 mmol/L (21-32); CHLORIDE 106 mmol/L (98-107); CREATININE 0.7 mg/dL (0.6-1.3); GLUCOSE 129 mg/dL (74-106); POTASSIUM 3.8 mmol/L (3.5-5.1); SODIUM SERUM 142 mmol/L (136-145); UREA NITROGEN, BLOOD 16 mg/dL (7-18)
[2018-09-14 07:02] LABS: BASOPHILS % (AUTO) 0.1 % (0.0-2.0); EOSINOPHILS % (AUTO) 0.1 % (0.0-4.0); HEMATOCRIT 31.6 % (36-48); HEMOGLOBIN 10.7 g/dL (12.0-16.0); LYMPHOCYTES # (AUTO) 0.6 K/uL (2.5-16.5); LYMPHOCYTES % (AUTO) 7.2 % (20.5-51.1); MEAN CORPUSCULAR HEMOGLOBIN 35 pg (27-31); MEAN CORPUSCULAR HGB CONC 34 g/dL (33-37); MEAN CORPUSCULAR VOLUME 104.6 fL (80-94); MONOCYTES # (AUTO) 0.6 K/uL (0.8-1.0); NEUTROPHILS % (AUTO) 85.6 % (42.2-75.2); PLATELET COUNT (AUTO) 212 K/uL (140-450); RED BLOOD CELL COUNT(AUTO) 3.02 MIL/uL (4.20-5.40); WHITE BLOOD COUNT (AUTO) 8.2 K/uL (4.8-10.8)
--- NOTE | 2018-09-14 07:29 | NUR ---
RECEIVED BEDSIDE REPORT FROM YOKO VILLAVICENCIO. PT STABLE, SLEEPING, BUT EASILY AROUSABLE. FAMILY AT THE BEDSIDE. NO SIGNS OF DISTRESS NOTED. NO REDNESS, SWELLING, OR INFLAMMATION NOTED ON IV SITE. BED IN LOWEST POSITION. CALL ELMORE WITHIN REACH. SAFETY MEASURES IN PLACE. PLAN OF CARE REVIEWED.
--- NOTE | 2018-09-14 07:30 | NUR ---
ENDORSED PT TO DAY SHIFT NURSE CAROLE RN, PT SLEEPING, NO DISTRESS NOTED, CALL LIGHT WITHIN REACH.
[2018-09-14 08:00] VITALS: BP 148/86
[2018-09-14] MEDS ORDERED: methylPREDNISolone SS 40 MG/ML VIAL IVP SCH (08:00)
[2018-09-14] MEDS: IPRATROPIUM 0.02% 0.5 MG/2.5 ML NEBU INH PRN ×2 (08:25→16:41)
[2018-09-14] MEDS: Z-GUARD PASTE TP SCH (09:00)
[2018-09-14] MEDS ORDERED: PSYLLIUM 12.2 GM/PKT PO SCH (09:00)
[2018-09-14] MEDS ORDERED: MINERAL OIL 135 ML ENEM RC SCH (09:00)
[2018-09-14] MEDS ORDERED: LACTULOSE 20 GM/30 ML UDC PO SCH (09:00)
[2018-09-14] MEDS ORDERED: METOPROLOL SUCCINATE 50 MG TABER PO SCH (09:00)
[2018-09-14] MEDS ORDERED: DOCUSATE SODIUM 100 MG GELCAP PO SCH (09:00)
[2018-09-14] MEDS ORDERED: POLYETHYLENE GLYCOL 17 GM/PKT PO SCH (09:00)
--- NOTE | 2018-09-14 09:00 | NUR ---
PT STABLE, SLEEPING, BUT EASILY AROUSABLE. FAMILY AT THE BEDSIDE.
[2018-09-14] MEDS ORDERED: ALBU3SOL83 IH (10:40)
[2018-09-14] MEDS: amLODIPine 5 MG TAB PO SCH (10:53)
[2018-09-14] MEDS: LACTOBACILLUS RHAMNOSUS GG 1 EACH CAP PO SCH (10:57)
--- NOTE | 2018-09-14 11:00 | NUR ---
ADMINISTERED SCHEDULED MEDICATIONS. PT TOLERATED WELL. NO OTHER NEEDS AT THIS TIME. FAMILY AT THE BEDSIDE.
[2018-09-14] MEDS: TAGRISSO PO SCH (11:01)
[2018-09-14] MEDS: NYSTATIN CRE 100 MU/GM 15 GM TUBE TP SCH ×2 (11:02→22:08)
--- NOTE | 2018-09-14 11:30 | NUR ---
WAS INFORMED BY DR. GONZALEZ THAT SHE SPOKE WITH THE FAMILY AND THEY DO NOT WANT A SNF. ORDER NEBULIZER FOR HOME WITH MASK. I CALLED [facility] AND SPOKE WITH ALEIDA [phone] OFFICE [phone]. I FAXED THE ORDER, H&P AND FACE SHEET TO THEM AT [phone]. INCLUDED DR. PRETTY'S NPI NUMBER.
[2018-09-14] MEDS ORDERED: SODIUM PHOSPHATE 118 ML ENEM RC SCH (13:00)
--- NOTE | 2018-09-14 13:02 | NUR ---
PT NOTE 1300 FAMILY REQUESTED TO HOLD PT TX TODAY D/T Pt TO RECEIVE ENEMA; RN NOTIFIED. WILL FOLLOW UP WITH Pt.
--- NOTE | 2018-09-14 13:34 | NUR ---
EHSAN ENEMA ADMINISTERED [place] DR. GONZALEZ. PT TOLERATED WELL. NO BOWEL MOVEMENT NOTED.
[2018-09-14 16:00] VITALS: BP 138/74
--- NOTE | 2018-09-14 16:30 | NUR ---
VITAL SIGNS TAKEN, PT STABLE. SLEEPING, BUT EASILY AROUSABLE. FAMILY AT THE BEDSIDE.
[2018-09-14] MEDS ORDERED: MAGNESIUM CITRATE 300 ML BTL PO SCH (17:15)
--- NOTE | 2018-09-14 17:15 | NUR ---
SOAP SUDS ENEMA GIVEN, PT HAD LARGE BOWEL MOVEMENT AFTER. NOTIFIED DR GONZALEZ.
[2018-09-14] MEDS ORDERED: PSYL0.5212 PO (18:50)
[2018-09-14] MEDS ORDERED: DOCU-299 PO (18:51)
--- NOTE | 2018-09-14 19:30 | NUR ---
ENDORSED PT TO RN ILIR FOR CONTINUITY OF CARE. PT STABLE, AWAKE, AND ALERT. FAMILY AT THE BEDSIDE.
--- NOTE | 2018-09-14 19:35 | NUR ---
RECEIVED ENDORSEMENT FROM AM SHIFT RN. PT AWAKE, TALKING WITH DAUGHTER AND SON-IN-LAW. NO SOB OR DISTRESS NOTED. IV ON RIGHT WRIST INTACT, NO S/S OF REDNESS, SWELLING OR INFECTION NOTED, SALINE LOCKED. BED IN LOWEST POSITION. CALL LIGHT WITHIN REACH. INITIAL ASSESSMENT DONE. WILL CONTINUE TO MONITOR.
[2018-09-14 20:00] VITALS: BP 149/77
--- NOTE | 2018-09-14 22:25 | NUR ---
DISCHARGE ORDER PRINTED AND SIGNED BY PATIENT; DISCUSSED DISCHARGE PAPERWORK AND APPOINTMENTS THAT NEED TO BE MADE, VERBALIZED UNDERSTANDING. REMOVED IV, TIP INTACT. PATIENT WAS TAKEN OUT OF UNIT VIA WHEELCHAIR , ASSISTED BY SHEET ROCK TAPER, DAUGHTER AND SON-IN-LAW. PATIENT IN STABLE CONDITION.
== END 2018-09-14 22:25 | disposition home or self-care (01) | DRG 202 ==
LOC: MED 19:02 → MTU 21:17
PROVIDERS: ADMIT General Practice; ATTEND General Practice
DX: J20.9 Acute bronchitis, unspecified (principal); G93.41 Metabolic encephalopathy; D61.810 Antineoplastic chemotherapy induced pancytopenia; C34.90 Malignant neoplasm of unspecified part of unspecified bronchus or lung; J44.0 Chronic obstructive pulmonary disease with (acute) lower respiratory infection; D61.818 Other pancytopenia; J90 Pleural effusion, not elsewhere classified; B37.89 Other sites of candidiasis; J44.1 Chronic obstructive pulmonary disease with (acute) exacerbation; C22.9 Malignant neoplasm of liver, not specified as primary or secondary; G30.9 Alzheimer's disease, unspecified; F02.80 Dementia in other diseases classified elsewhere, unspecified severity, without behavioral disturbance, psychotic disturbance, mood disturbance, and anxiety; R31.9 Hematuria, unspecified; D64.9 Anemia, unspecified; E87.8 Other disorders of electrolyte and fluid balance, not elsewhere classified; K44.9 Diaphragmatic hernia without obstruction or gangrene; E66.9 Obesity, unspecified; Z68.31 Body mass index [BMI] 31.0-31.9, adult; E86.0 Dehydration; E89.0 Postprocedural hypothyroidism; Z86.718 Personal history of other venous thrombosis and embolism; I10 Essential (primary) hypertension; Z60.2 Problems related to living alone; R62.7 Adult failure to thrive; K21.9 Gastro-esophageal reflux disease without esophagitis; L50.8 Other urticaria; T45.1X5A Adverse effect of antineoplastic and immunosuppressive drugs, initial encounter; Y92.89 Other specified places as the place of occurrence of the external cause; K59.00 Constipation, unspecified; L30.4 Erythema intertrigo; F41.9 Anxiety disorder, unspecified; D63.8 Anemia in other chronic diseases classified elsewhere
CPT/HCPCS: 36415; 71045; 71275; 80048; 80053; 81001; 82140; 82150; 82607; 82746; 83036; 83540; 83605; 83690; 83735; 83880; 84100; 84443; 84484; 85025; 85045; 85379; 85610; 85730; 87040; 87081; 87086; 87804; 89220; 93005; 94640; 97116; 97530; 99285; J0456; J0696; J2920; J2930; J3475; J7030; J7060; J7620; J7644; Q0092; Q9967